=== PATIENT | male | born 1985 | race African-American/Black ===

== ENCOUNTER 2016-10-20 01:38 | Emergency (ER) ==
[2016-10-20] MEDS ORDERED: BOOSTRIX VACCINE ONE (01:52)
[2016-10-20] MEDS ORDERED: XYLOCAINE-MPF 1% 5 ML ONE (01:52)
[2016-10-20] MEDS ORDERED: DERMABOND ONE (01:56)
[2016-10-20] MEDS ORDERED: MOTRIN PO ONE (02:09)
--- NOTE | 2016-10-20 02:14 | PROVIDER DOCUMENTATION ---
HPI-Rash/Wound/ReCheck - General Chief Complaint: Laceration[s] Stated Complaint: WORK INJURY Time Seen by Provider: 10/20/16 02:09 Source: patient Allergies/Adverse Reactions: Allergies Allergy/AdvReac Type Severity Reaction Status Date / Time No Known Allergies Allergy Verified 10/20/16 02:20 Home Medications: No Home Medications 10/20/16 - History of Present Illness-Dermatology Nature of Presenting Problem: 31 yo M presents to the ER with complaint of lacerations on L forearm. Pt was at work and a machine cut his forearm. Location: reports: upper extremity (L forearm) Severity: reports: mild Onset/Duration: reports: just prior to arrival Timing: reports: still present Context/Associated Symptoms: reports: laceration (2cm superficial and 3 cm both on L forearm) Identifiable cause?: Yes (work machine) Locality of Occurance: [place] Review of Systems - Adult - REVIEW OF SYSTEMS - ADULT Constitutional: denies: chills, fever Eyes: reports: no symptoms reported Ears, Nose, Mouth & Throat: reports: no symptoms reported Cardiovascular: denies: chest pain, palpitations Respiratory: reports: no symptoms reported Gastrointestinal: reports: no symptoms reported Genitourinary: reports: no symptoms reported Musculoskeletal: reports: no symptoms reported Integumentary: reports: no symptoms reported Neurological: reports: no symptoms reported Psychiatric: reports: no symptoms reported Endocrine: reports: no symptoms reported Hematologic/Lymphatic: reports: no symptoms reported Allergic/Immunologic: reports: no symptoms reported All Other Systems: Reviewed and Negative Past History - Adult - PAST MEDICAL HISTORY-ADULT Review of Records: reports: Old Records Reviewed, Nursing Assessment Review, Medications Reviewed - IMMUNIZATION STATUS Childhood Immunizations: See Nurse Assessment Flu Vaccine: See Nurse Assessment Physical Exam-General - PHYSICAL EXAM-ADULT Initial Vital Signs Reviewed: Yes - CONSTITUTIONAL General Appearance: appears well, alert - EYES Eyes: PERRL/EOMI, pink conjunctivae - HEAD, EARS, NOSE, MOUTH & THROAT HENMT: normocephalic/atraumatic, moist mucous membranes - CARDIOVASCULAR Cardiovascular: normal peripheral pulses, regular rate, rhythm - GASTROINTESTINAL (ABDOMEN) Abdominal Exam: non tender, soft - SKIN Integumentary: laceration(s) (2 cm and 3 cm both on L forearm) Progress - PLAN OF CARE/RESULTS Progress/Plan/Lab Results: Orders Category Date Time Status WRIST COMPLETE RIGHT [RAD] Stat Exams 10/20/16 02:09 Ordered Cyanoacrylate Tissue Adhesive [Dermabond] Med 10/20/16 01:56 Discontinued 1 each .ROUTE .STK-MED ONE Diph,Pertuss(Acell),Tet Vac/Pf [Boostrix Vaccine] Med 10/20/16 01:52 Discontinued 0.5 ml .ROUTE .STK-MED ONE Ibuprofen [Motrin] Med 10/20/16 02:09 Discontinued 800 mg PO NOW ONE Lidocaine 1% Pf [Xylocaine-Mpf 1%] 5 ml Med 10/20/16 01:52 Discontinued .ROUTE As Directed Vital Signs Temp Pulse Resp BP Pulse Ox 10/20/16 01:46 97.9 F 64 18 178/105 100 - XRAY 1 XRAY: Right XRAY Study: Wrist Procedures - LACERATION/WOUND REPAIR/FB Left Upper Anterior Forearm Wound Location: Other: L forearm Wound Length: 2cm Wound's Depth, Shape: superficial Wound Explored/Foreign Body: clean Wound Repaired with: Dermabond Departure - Departure Time of Disposition Order: 02:35 DIAGNOSIS: Laceration Fracture of ulnar styloid Qualifiers: Encounter type: initial encounter Fracture type: closed Fracture alignment: nondisplaced Laterality: right Qualified Code(s): S52.614A - Nondisplaced fracture of right ulna styloid process, initial encounter for closed fracture Disposition: HOME 01 Certified Medical Emergency: Emergent Condition: Good Additional Instructions: ED Follow Up Instructions: You have been treated by a care provider in the Emergency Department. These instructions are being provided to you so you can have an understanding of how to care for yourself upon discharge. Upon discharge from the Emergency Department, you are responsible for making arrangements for follow-up care by a physician of your choice. Take all prescribed medications as directed. Return to the Emergency Department immediately for any new or worsening symptoms. You may call the Physician Referral phone number at [phone] to obtain a list of Physicians who are taking new patients. Referrals: Pawel Lopez MD [STAFF PHYSICIAN] - None,PCP [Primary Care Provider] - Instructions: Ibuprofen tablets and capsules, Laceration Care, Adult, Easy-to- Read Attestation - Scribe Verification/Attestation Scribe:: Ja Wayne Acting as Scribe for:: Juventino Sharpe Scribe documention review:: This chart was documented by a scribe and accurately reflects the service the provider performed and the decisions made by the provider.
[2016-10-20 02:46] VITALS: BP 158/095
--- NOTE | 2016-10-20 11:42 | Diag Imaging Result Document ---
PROCEDURE NAME: WRIST COMPLETE RIGHT - 10/20/2016 PLAIN RADIOGRAPHS OF THE RIGHT WRIST, 3 VIEWS: COMPARISON: None available. FINDINGS: There is a defect involving the ulnar styloid at its base with mild displacement. This is of unknown acuity. It is possible that this is chronic; however, an acute avulsion cannot be excluded. No other definite fracture, dislocation, or intrinsic osseous lesion is appreciated. There is, perhaps, subtle soft tissue edema at the medial aspect of the wrist. IMPRESSION: Defect involving the ulnar styloid of unknown acuity. Please correlate clinically to exclude an acute avulsion fracture.
== END 2016-10-20 02:46 | disposition home or self-care (01) ==
LOC: P.ED 01:38
DX: S51.812A Laceration without foreign body of left forearm, initial encounter (principal); S52.614A Nondisplaced fracture of right ulna styloid process, initial encounter for closed fracture; W31.9XXA Contact with unspecified machinery, initial encounter
CPT/HCPCS: 90471; 90715